=== PATIENT | male | born 1950 | race Caucasian/White ===

== ENCOUNTER 2020-04-29 03:37 | Emergency (ER) | payer MEDICARE, SELFPAY ==
[2020-04-29] VITALS (51 sets, daily range): BP systolic 117–192; BP diastolic 58–97; PULSE 57–67; RESP 8–23; O2SAT 97–100
--- NOTE | 2020-04-29 03:36 | ED.CHESTPAIN ---
HPI - Chest Pain <Carrie Hanna MD - Last Filed: 04/29/20 18:05> General Chief Complaint: Chest Pain Stated Complaint: Chest pain Time Seen by Provider: 04/29/20 03:40 History of Present Illness HPI narrative: Otherwise healthy 70-year-old gentleman currently on no medications presents after developing chest pain starting at 6:00 p.m. last night. He was sitting watching TV and noticed pressure tightness across his chest radiating up into the left shoulder without associated diaphoresis or dyspnea. Has progressively gotten worse over the course of the evening and by 3:00 a.m. was uncomfortable enough that he called medics for further evaluation. He notes that he went for a beach walk earlier in the day did not have chest pain diaphoresis or dyspnea. He denies any recent illness and specifically no fever, cough, abdominal pain, vomiting, diarrhea, lower extremity edema. Related Data Home Medications Medication Instructions Recorded Confirmed No Known Home Medications 04/29/20 04/29/20 Allergies Allergy/AdvReac Type Severity Reaction Status Date / Time No Known Drug Allergies Allergy Verified 04/29/20 03:51 Review of Systems <Carrie Hanna MD - Last Filed: 04/29/20 18:05> Review of Systems Narrative: Remainder of review of systems including constitutional, ENT, cardiovascular, respiratory, GI, , musculoskeletal, skin, neurologic and psychiatric systems reviewed and are unremarkable except as noted in HPI. Patient History <Carrie Hanna MD - Last Filed: 04/29/20 18:05> Medical History Healthy adult (Acute) Social History Smoking Status: Never smoker Exam <Carrie Hanna MD - Last Filed: 04/29/20 18:05> Narrative Exam Narrative: General: Healthy appearing, in no acute distress. Able to give a complete and coherent history. Well-nourished well-developed HEENT: Moist mucous membranes, normal sclera with reactive pupils, Neck: No JVD, supple, no cervical adenopathy Respiratory: Lungs are clear to auscultation, no wheezing no rales no rhonchi. Full and symmetrical air movement Cardiac: Regular rate and rhythm no murmurs no bruits Abdomen: Soft nontender good bowel tones, no flank pain Skin: Warm and dry, no rashes Neurologic: Grossly neurologically intact with no obvious asymmetries or abnormalities Extremities: No trauma, well perfused Psych: Cooperative, appropriate insight and affect Initial Vital Signs Initial Vital Signs: Vital Signs Pulse Rate 66 04/29/20 03:35 Respiratory Rate 18 04/29/20 03:35 Blood Pressure 175/75 H 04/29/20 03:35 Pulse Oximetry 98 04/29/20 03:35 <Weston Edge DO - Last Filed: 04/29/20 11:59> Initial Vital Signs Initial Vital Signs: Vital Signs Pulse Rate 66 04/29/20 03:35 Respiratory Rate 18 04/29/20 03:35 Blood Pressure 175/75 H 04/29/20 03:35 Pulse Oximetry 98 04/29/20 03:35 Course <Carrie Hanna MD - Last Filed: 04/29/20 18:05> Orders Ordered: Discontinued Medications Acetaminophen (Tylenol) 650 mg PO NOW ONE Stop: 04/29/20 08:26 Last Admin: 04/29/20 08:33 Dose: 650 mg Documented by: NATALIE Heparin Sodium (Porcine) (Heparin) 5,200 unit 80 unit/kg (5200 unit) IV NOW ONE Stop: 04/29/20 07:05 Last Admin: 04/29/20 07:08 Dose: 5,200 unit Documented by: DANI Sodium Chloride (Normal Saline 0.9%) 1,000 mls @ 150 mls/hr IV CONT [facility] Last Infusion: 04/29/20 07:20 Dose: 0 mls/hr Documented by: Admin: 04/29/20 03:58 Dose: 150 mls/hr Documented by: DANI Heparin Sodium/Dextrose (Heparin Drip) 25,000 unit in 500 mls @ 20 mls/hr IV CONT [facility]; Protocol Last Titration: 04/29/20 09:09 Dose: 1,000 units/hr, 20 mls/hr Documented by: Admin: 04/29/20 07:08 Dose: 1,000 units/hr, 20 mls/hr Documented by: DANI Morphine Sulfate (Morphine) 4 mg IV NOW ONE Stop: 04/29/20 08:26 Last Admin: 04/29/20 08:32 Dose: 4 mg Documented by: NATALIE Nitroglycerin (Nitrostat) 0.4 mg SL [id number] PRN PRN Reason: Chest Pain Last Admin: 04/29/20 06:52 Dose: 0.4 mg Documented by: Admin: 04/29/20 03:58 Dose: 0.4 mg Documented by: DANI Nitroglycerin (Nitro-Bid) 1 inch TOP NOW ONE Stop: 04/29/20 06:50 Last Admin: 04/29/20 06:54 Dose: Not Given Documented by: DANI Nitroglycerin (Nitro-Bid) 0.5 inch TOP NOW ONE Stop: 04/29/20 06:51 Last Admin: 04/29/20 06:55 Dose: 0.5 inch Documented by: JAC Nitroglycerin (Nitrostat) 0.4 mg SL NOW ONE Stop: 04/29/20 07:05 Last Admin: 04/29/20 07:07 Dose: 0.4 mg Documented by: DANI Vital Signs Vital signs: Vital Signs - 8 hr 04/29/20 04:10 04/29/20 04:15 04/29/20 04:20 Pulse Rate 66 64 63 Respiratory Rate 13 13 16 Blood Pressure 117/59 L 121/58 L 129/63 Pulse Oximetry 97 97 98 04/29/20 04:25 04/29/20 04:30 04/29/20 04:35 Pulse Rate 62 61 62 Respiratory Rate 13 12 13 Blood Pressure 137/68 119/65 123/70 Pulse Oximetry 97 97 97 04/29/20 04:40 04/29/20 04:46 04/29/20 04:50 Pulse Rate 62 65 61 Respiratory Rate 13 19 20 Blood Pressure 127/71 139/95 H 148/95 H Pulse Oximetry 98 98 98 04/29/20 04:55 04/29/20 05:00 04/29/20 05:05 Pulse Rate 61 60 63 Respiratory Rate 14 10 L 13 Blood Pressure 139/66 138/67 133/60 Pulse Oximetry 98 98 98 04/29/20 05:10 04/29/20 05:15 04/29/20 05:20 Pulse Rate 62 64 62 Respiratory Rate 21 13 11 L Blood Pressure 130/63 135/66 132/65 Pulse Oximetry 98 98 98 04/29/20 05:25 04/29/20 05:30 04/29/20 05:35 Pulse Rate 62 60 60 Respiratory Rate 15 12 8 L Blood Pressure 136/67 134/68 135/68 Pulse Oximetry 99 99 99 04/29/20 05:40 04/29/20 05:45 04/29/20 05:50 Pulse Rate 60 60 60 Respiratory Rate 10 L 15 16 Blood Pressure 139/70 141/67 H 139/74 Pulse Oximetry 99 100 99 04/29/20 05:55 04/29/20 06:00 04/29/20 06:05 Pulse Rate 59 L 59 L 57 L Respiratory Rate 14 11 L 12 Blood Pressure 139/76 135/74 140/76 Pulse Oximetry 100 99 100 04/29/20 06:10 04/29/20 06:17 04/29/20 06:20 Pulse Rate 59 L 60 58 L Respiratory Rate 11 L 15 12 Blood Pressure 151/74 H 168/71 H 149/69 H Pulse Oximetry 100 04/29/20 06:30 04/29/20 06:41 04/29/20 06:59 Pulse Rate 63 63 67 Respiratory Rate 13 19 14 Blood Pressure 171/77 H 145/74 H Pulse Oximetry 04/29/20 07:00 04/29/20 07:07 04/29/20 07:10 Pulse Rate 67 67 67 Respiratory Rate 15 12 Blood Pressure 147/72 H 147/72 H 157/74 H Pulse Oximetry 04/29/20 07:15 04/29/20 07:30 04/29/20 08:00 Pulse Rate 66 61 63 Respiratory Rate 16 13 14 Blood Pressure 155/72 H Pulse Oximetry 100 99 04/29/20 08:07 04/29/20 08:10 04/29/20 08:15 Pulse Rate 63 63 64 Respiratory Rate 15 15 19 Blood Pressure 165/80 H 161/83 H 171/90 H Pulse Oximetry 99 99 98 04/29/20 08:20 04/29/20 08:25 04/29/20 08:30 Pulse Rate 66 65 64 Respiratory Rate 20 23 19 Blood Pressure 192/97 H 171/86 H 172/88 H Pulse Oximetry 100 99 100 04/29/20 08:36 04/29/20 08:40 04/29/20 08:45 Pulse Rate 58 L 58 L 61 Respiratory Rate 10 L 13 13 Blood Pressure 178/85 H 175/83 H 169/77 H Pulse Oximetry 100 100 100 04/29/20 08:50 04/29/20 08:55 04/29/20 09:00 Pulse Rate 57 L 60 62 Respiratory Rate 11 L 16 17 Blood Pressure 148/76 H 144/72 H 132/67 Pulse Oximetry 99 98 98 04/29/20 09:05 Pulse Rate 60 Respiratory Rate 11 L Blood Pressure 140/71 Pulse Oximetry 99 <Weston Edge DO - Last Filed: 04/29/20 11:59> Course Course Narrative: received in signout from Dr. Hanna. I've performed an independent history and physical exam and have no significant additions. 0830 - pain returning. Now 02/27 with radiation to left posterior shoulder and heaviness in chest. Morphine 4mg IV given along with Acetaminophen 650mg PO and NG drip ordered. Repeat EKG now shows hyperacute T waves in anterior leads. Cardiology paged, [facility] Insemination Worker notified. Metop held given HR 57. Dr. Westbrook will see patient on arrival 0900 - Hospitalist paged. Orders Ordered: Discontinued Medications Acetaminophen (Tylenol) 650 mg PO NOW ONE Stop: 04/29/20 08:26 Last Admin: 04/29/20 08:33 Dose: 650 mg Documented by: NATALIE Heparin Sodium (Porcine) (Heparin) 5,200 unit 80 unit/kg (5200 unit) IV NOW ONE Stop: 04/29/20 07:05 Last Admin: 04/29/20 07:08 Dose: 5,200 unit Documented by: DANI Sodium Chloride (Normal Saline 0.9%) 1,000 mls @ 150 mls/hr IV CONT [facility] Last Infusion: 04/29/20 07:20 Dose: 0 mls/hr Documented by: Admin: 04/29/20 03:58 Dose: 150 mls/hr Documented by: DANI Heparin Sodium/Dextrose (Heparin Drip) 25,000 unit in 500 mls @ 20 mls/hr IV CONT [facility]; Protocol Last Titration: 04/29/20 09:09 Dose: 1,000 units/hr, 20 mls/hr Documented by: Admin: 04/29/20 07:08 Dose: 1,000 units/hr, 20 mls/hr Documented by: DANI Morphine Sulfate (Morphine) 4 mg IV NOW ONE Stop: 04/29/20 08:26 Last Admin: 04/29/20 08:32 Dose: 4 mg Documented by: NATALIE Nitroglycerin (Nitrostat) 0.4 mg SL [id number] PRN PRN Reason: Chest Pain Last Admin: 04/29/20 06:52 Dose: 0.4 mg Documented by: Admin: 04/29/20 03:58 Dose: 0.4 mg Documented by: DANI Nitroglycerin (Nitro-Bid) 1 inch TOP NOW ONE Stop: 04/29/20 06:50 Last Admin: 04/29/20 06:54 Dose: Not Given Documented by: DANI Nitroglycerin (Nitro-Bid) 0.5 inch TOP NOW ONE Stop: 04/29/20 06:51 Last Admin: 04/29/20 06:55 Dose: 0.5 inch Documented by: JAC Nitroglycerin (Nitrostat) 0.4 mg SL NOW ONE Stop: 04/29/20 07:05 Last Admin: 04/29/20 07:07 Dose: 0.4 mg Documented by: DANI Vital Signs Vital signs: Vital Signs - 8 hr 04/29/20 04:10 04/29/20 04:15 04/29/20 04:20 Pulse Rate 66 64 63 Respiratory Rate 13 13 16 Blood Pressure 117/59 L 121/58 L 129/63 Pulse Oximetry 97 97 98 04/29/20 04:25 04/29/20 04:30 04/29/20 04:35 Pulse Rate 62 61 62 Respiratory Rate 13 12 13 Blood Pressure 137/68 119/65 123/70 Pulse Oximetry 97 97 97 04/29/20 04:40 04/29/20 04:46 04/29/20 04:50 Pulse Rate 62 65 61 Respiratory Rate 13 19 20 Blood Pressure 127/71 139/95 H 148/95 H Pulse Oximetry 98 98 98 04/29/20 04:55 04/29/20 05:00 04/29/20 05:05 Pulse Rate 61 60 63 Respiratory Rate 14 10 L 13 Blood Pressure 139/66 138/67 133/60 Pulse Oximetry 98 98 98 04/29/20 05:10 04/29/20 05:15 04/29/20 05:20 Pulse Rate 62 64 62 Respiratory Rate 21 13 11 L Blood Pressure 130/63 135/66 132/65 Pulse Oximetry 98 98 98 04/29/20 05:25 04/29/20 05:30 04/29/20 05:35 Pulse Rate 62 60 60 Respiratory Rate 15 12 8 L Blood Pressure 136/67 134/68 135/68 Pulse Oximetry 99 99 99 04/29/20 05:40 04/29/20 05:45 04/29/20 05:50 Pulse Rate 60 60 60 Respiratory Rate 10 L 15 16 Blood Pressure 139/70 141/67 H 139/74 Pulse Oximetry 99 100 99 04/29/20 05:55 04/29/20 06:00 04/29/20 06:05 Pulse Rate 59 L 59 L 57 L Respiratory Rate 14 11 L 12 Blood Pressure 139/76 135/74 140/76 Pulse Oximetry 100 99 100 04/29/20 06:10 04/29/20 06:17 04/29/20 06:20 Pulse Rate 59 L 60 58 L Respiratory Rate 11 L 15 12 Blood Pressure 151/74 H 168/71 H 149/69 H Pulse Oximetry 100 04/29/20 06:30 04/29/20 06:41 04/29/20 06:59 Pulse Rate 63 63 67 Respiratory Rate 13 19 14 Blood Pressure 171/77 H 145/74 H Pulse Oximetry 04/29/20 07:00 04/29/20 07:07 04/29/20 07:10 Pulse Rate 67 67 67 Respiratory Rate 15 12 Blood Pressure 147/72 H 147/72 H 157/74 H Pulse Oximetry 04/29/20 07:15 04/29/20 07:30 04/29/20 08:00 Pulse Rate 66 61 63 Respiratory Rate 16 13 14 Blood Pressure 155/72 H Pulse Oximetry 100 99 04/29/20 08:07 04/29/20 08:10 04/29/20 08:15 Pulse Rate 63 63 64 Respiratory Rate 15 15 19 Blood Pressure 165/80 H 161/83 H 171/90 H Pulse Oximetry 99 99 98 04/29/20 08:20 04/29/20 08:25 04/29/20 08:30 Pulse Rate 66 65 64 Respiratory Rate 20 23 19 Blood Pressure 192/97 H 171/86 H 172/88 H Pulse Oximetry 100 99 100 04/29/20 08:36 04/29/20 08:40 04/29/20 08:45 Pulse Rate 58 L 58 L 61 Respiratory Rate 10 L 13 13 Blood Pressure 178/85 H 175/83 H 169/77 H Pulse Oximetry 100 100 100 04/29/20 08:50 04/29/20 08:55 04/29/20 09:00 Pulse Rate 57 L 60 62 Respiratory Rate 11 L 16 17 Blood Pressure 148/76 H 144/72 H 132/67 Pulse Oximetry 99 98 98 04/29/20 09:05 Pulse Rate 60 Respiratory Rate 11 L Blood Pressure 140/71 Pulse Oximetry 99 MDM - Chest Pain <Carrie Hanna MD - Last Filed: 04/29/20 18:05> Medical Records Data Attestation: I reviewed the patient's medical records. Lab Data Attestation: I reviewed the patient's lab results. Result diagrams: 04/29/20 03:45 04/29/20 03:45 Labs: Lab Results 04/29/20 04/29/20 04/29/20 Range/Units 03:45 03:45 05:50 WBC 7.2 (4.5-11.0) X10^3/uL RBC 4.60 (4.5-5.9) X10^6/uL Hgb 14.3 (13.5-17.5) g/dL Hct 42.7 (41-53) % MCV 92.8 (80-100) fL MCH 31.0 (26-34) PG MCHC 33.4 (30-36) % RDW 13.0 (11.6-14.8) % Plt Count 187 (150-400) X10^3/uL Neut % (Auto) 72.6 (50-75) % Lymph % (Auto) 14.6 L (25-40) % Irion % (Auto) 8.9 (3-14) % Eos % (Auto) 3.3 (2-4) % Baso % (Auto) 0.6 (0-2) % Neut # (Auto) 5200 (0825-4045) /uL Lymph # (Auto) 1100 (7153-2722) /uL Irion # (Auto) 600 (0-900) /uL Eos # (Auto) 200 (0-450) /uL Baso # (Auto) 0 (0-100) /uL Sodium 140 (137-145) mmol/L Potassium 4.5 (3.4-5.1) mmol/L Chloride 107 (98-107) mmol/L Carbon Dioxide 26 (22-32) mmol/L BUN 25 H (9-20) mg/dL Creatinine 1.02 (0.66-1.25) mg/dL Estimated GFR > 60.0 (>60) mL/min BUN/Creatinine Ratio 24.5 H (6-22) Glucose 102 (80-110) mg/dL Calcium 9.0 (8.4-10.2) mg/dL Total Bilirubin 0.5 (0.2-1.3) mg/dL AST 28 (17-59) IU/L ALT 26 (<50) IU/L Alkaline Phosphatase 54 (38-126) U/L Total Creatine Kinase 54 L (55-170) U/L CK-MB (CK-2) TNP CK-MB (CK-2) Rel Index TNP Troponin I < 0.012 < 0.012 (0.01-0.034) ng/mL Total Protein 7.1 (6.3-8.2) g/dL Albumin 4.3 (3.5-5.0) g/dL Globulin 2.8 (1.7-4.1) g/dL Albumin/Globulin Ratio 1.5 (1.0-2.8) Lipase 351 H (23-300) U/L COVID-19 PCR (Negative) 04/29/20 Range/Units 06:40 WBC (4.5-11.0) X10^3/uL RBC (4.5-5.9) X10^6/uL Hgb (13.5-17.5) g/dL Hct (41-53) % MCV (80-100) fL MCH (26-34) PG MCHC (30-36) % RDW (11.6-14.8) % Plt Count (150-400) X10^3/uL Neut % (Auto) (50-75) % Lymph % (Auto) (25-40) % Irion % (Auto) (3-14) % Eos % (Auto) (2-4) % Baso % (Auto) (0-2) % Neut # (Auto) (2028-9502) /uL Lymph # (Auto) (6760-8647) /uL Irion # (Auto) (0-900) /uL Eos # (Auto) (0-450) /uL Baso # (Auto) (0-100) /uL Sodium (137-145) mmol/L Potassium (3.4-5.1) mmol/L Chloride (98-107) mmol/L Carbon Dioxide (22-32) mmol/L BUN (9-20) mg/dL Creatinine (0.66-1.25) mg/dL Estimated GFR (>60) mL/min BUN/Creatinine Ratio (6-22) Glucose (80-110) mg/dL Calcium (8.4-10.2) mg/dL Total Bilirubin (0.2-1.3) mg/dL AST (17-59) IU/L ALT (<50) IU/L Alkaline Phosphatase (38-126) U/L Total Creatine Kinase (55-170) U/L CK-MB (CK-2) CK-MB (CK-2) Rel Index Troponin I (0.01-0.034) ng/mL Total Protein (6.3-8.2) g/dL Albumin (3.5-5.0) g/dL Globulin (1.7-4.1) g/dL Albumin/Globulin Ratio (1.0-2.8) Lipase (23-300) U/L COVID-19 PCR Negative (Negative) Imaging Data Chest x-ray: Attestation: I personally reviewed and interpreted this imaging study as follows: My Impression: Completely normal chest x-ray. No pneumothorax, no infiltrates no masses. ECG Data Interpretation: 1: Medics from the field at 2:57 a.m. Sinus rhythm at a rate of [address] elevation in lead V3, upsloping less than [address] depression in AVF and II EKG on arrival in the ER, 3:45am (after single nitro, aspirin, pain pressure sensation significantly decreased) Sinus rhythm at a rate of [address] depression in II and AVF has resolved Less than [address] elevation in V3 4:00 Rate of 71, sinus rhythm Normal intervals, normal axis No ST-T wave changes, no STEMI 6:00 Sinus rhythm at a rate of 56 Normal axis, normal intervals No acute ischemic changes MDM Narrative Medical decision making narrative: 70-year-old gentleman no significant history at all much less of cardiac issues. Chest pain starting approximately 6:00 p.m. last night, progressively worsening over the ensuing 9 hours. Hemodynamically stable, no dyspnea no diaphoresis. Subtle of all the EKG changes verses differences in techniques and lead placement from medic EKGs and initial ER EKG. Lab work pending. He did seem to respond nicely to initial nitro. Second nitro currently being administered. 2nd EKG does not as show evolving changes. Second nitro has him to completely pain/pressure free. Remains hemodynamically stable. 625 2nd troponin and repeat EKG remain unremarkable. Patient remains pain free. His history is strongly is consistent with cardiac etiology and a heart score of 5 putting him at high risk for MACE. Care is reviewed with Dr Nicholas, on-call Cardiology. He agrees that echocardiogram and stress testing is going to be warranted. Because stress testing cannot be accomplished at [facility] will see if beds are available at [facility] to facilitate the rest of his cardiac workup. 630 supervisor concrete stone finishing indicates bed is available, Dr Herbert accepts admit. Results of Covid test required prior to bed placement and transport. All is reviewed with patient. Questions answered. 650 patient is noticing pain returning in the left side of his neck. Sublingual nitro given half an inch of nitropaste placed. EKG is repeated. 700 repeat EKG is reassuring. Pain now occurring at rest however continues. Slightly lessened with a single nitro. Second nitro will be given and heparin will be started. <Weston Edge, DO - Last Filed: 04/29/20 11:59> Lab Data Labs: Lab Results 04/29/20 04/29/20 04/29/20 Range/Units 03:45 03:45 05:50 WBC 7.2 (4.5-11.0) X10^3/uL RBC 4.60 (4.5-5.9) X10^6/uL Hgb 14.3 (13.5-17.5) g/dL Hct 42.7 (41-53) % MCV 92.8 (80-100) fL MCH 31.0 (26-34) PG MCHC 33.4 (30-36) % RDW 13.0 (11.6-14.8) % Plt Count 187 (150-400) X10^3/uL Neut % (Auto) 72.6 (50-75) % Lymph % (Auto) 14.6 L (25-40) % Irion % (Auto) 8.9 (3-14) % Eos % (Auto) 3.3 (2-4) % Baso % (Auto) 0.6 (0-2) % Neut # (Auto) 5200 (5664-4457) /uL Lymph # (Auto) 1100 (6452-8182) /uL Irion # (Auto) 600 (0-900) /uL Eos # (Auto) 200 (0-450) /uL Baso # (Auto) 0 (0-100) /uL Sodium 140 (137-145) mmol/L Potassium 4.5 (3.4-5.1) mmol/L Chloride 107 (98-107) mmol/L Carbon Dioxide 26 (22-32) mmol/L BUN 25 H (9-20) mg/dL Creatinine 1.02 (0.66-1.25) mg/dL Estimated GFR > 60.0 (>60) mL/min BUN/Creatinine Ratio 24.5 H (6-22) Glucose 102 (80-110) mg/dL Calcium 9.0 (8.4-10.2) mg/dL Total Bilirubin 0.5 (0.2-1.3) mg/dL AST 28 (17-59) IU/L ALT 26 (<50) IU/L Alkaline Phosphatase 54 (38-126) U/L Total Creatine Kinase 54 L (55-170) U/L CK-MB (CK-2) TNP CK-MB (CK-2) Rel Index TNP Troponin I < 0.012 < 0.012 (0.01-0.034) ng/mL Total Protein 7.1 (6.3-8.2) g/dL Albumin 4.3 (3.5-5.0) g/dL Globulin 2.8 (1.7-4.1) g/dL Albumin/Globulin Ratio 1.5 (1.0-2.8) Lipase 351 H (23-300) U/L COVID-19 PCR (Negative) 04/29/20 Range/Units 06:40 WBC (4.5-11.0) X10^3/uL RBC (4.5-5.9) X10^6/uL Hgb (13.5-17.5) g/dL Hct (41-53) % MCV (80-100) fL MCH (26-34) PG MCHC (30-36) % RDW (11.6-14.8) % Plt Count (150-400) X10^3/uL Neut % (Auto) (50-75) % Lymph % (Auto) (25-40) % Irion % (Auto) (3-14) % Eos % (Auto) (2-4) % Baso % (Auto) (0-2) % Neut # (Auto) (8700-8438) /uL Lymph # (Auto) (8723-8527) /uL Irion # (Auto) (0-900) /uL Eos # (Auto) (0-450) /uL Baso # (Auto) (0-100) /uL Sodium (137-145) mmol/L Potassium (3.4-5.1) mmol/L Chloride (98-107) mmol/L Carbon Dioxide (22-32) mmol/L BUN (9-20) mg/dL Creatinine (0.66-1.25) mg/dL Estimated GFR (>60) mL/min BUN/Creatinine Ratio (6-22) Glucose (80-110) mg/dL Calcium (8.4-10.2) mg/dL Total Bilirubin (0.2-1.3) mg/dL AST (17-59) IU/L ALT (<50) IU/L Alkaline Phosphatase (38-126) U/L Total Creatine Kinase (55-170) U/L CK-MB (CK-2) CK-MB (CK-2) Rel Index Troponin I (0.01-0.034) ng/mL Total Protein (6.3-8.2) g/dL Albumin (3.5-5.0) g/dL Globulin (1.7-4.1) g/dL Albumin/Globulin Ratio (1.0-2.8) Lipase (23-300) U/L COVID-19 PCR Negative (Negative) Discharge Plan Departure Patient Disposition: [facility] Clinical Impression: Acute coronary syndrome Discharge Date/Time: 04/29/20 09:35 Prescriptions: No Action No Known Home Medications RF: 0
--- NOTE | 2020-04-29 03:50 | DI.RAD.S_ITS ---
PROCEDURE: XR CHEST 1V INDICATIONS: chest pain TECHNIQUE: One view of the chest was acquired. COMPARISON: None. FINDINGS: Surgical changes and devices: None. Lungs and pleura: Lungs are clear. No pleural effusions or pneumothorax. Mediastinum: Mediastinal contours appear normal. Heart size is normal. Bones and chest wall: No suspicious bony lesions. Overlying soft tissues appear unremarkable. IMPRESSION: 1. No acute cardiopulmonary disease. Dictated by: Ankit Terry M.D. on 04/29/2020 at 7:18 Approved by: Ankit Terry M.D. on 04/29/2020 at 7:18
[2020-04-29 03:58] LABS: Add Manual Diff / Slide Review NO; Basophils Absolute Auto 0 /uL (0-100); Basophils Percent Auto 0.6 % (0-2); Eosinophils Absolute Auto 200 /uL (0-450); Eosinophils Percent Auto 3.3 % (2-4); Hematocrit 42.7 % (41-53); Hemoglobin 14.3 g/dL (13.5-17.5); Lymphocytes Absolute Auto 1100 /uL (1100-4500); Lymphocytes Percent Auto 14.6 % (25-40); Mean Corpuscular HGB Conc 33.4 % (30-36); Mean Corpuscular Volume 92.8 fL (80-100); Monocytes Absolute Auto 600 /uL (0-900); Monocytes Percent Auto 8.9 % (3-14); Neutrophils Absolute Auto 5200 /uL (1500-7000); Neutrophils Percent Auto 72.6 % (50-75); Platelet Count 187 X10^3/uL (150-400); White Blood Cell Count 7.2 X10^3/uL (4.5-11.0)
[2020-04-29] MEDS: NITROGLYCERIN 0.4 MG SL TAB SL ×3 (03:58→07:07)
[2020-04-29] MEDS: SODIUM CHLORIDE 0.9% 1,000 ML 150 ML IV (03:58)
[2020-04-29 04:04] LABS: Alanine Aminotransferase 26 IU/L (<50); Albumin 4.3 g/dL (3.5-5.0); Albumin Globulin Ratio 1.5 (1.0-2.8); Alkaline Phosphatase 54 U/L (38-126); Aspartate Aminotransferase 28 IU/L (17-59); BUN Creatinine Ratio 24.5 (6-22); Bilirubin Total 0.5 mg/dL (0.2-1.3); Blood Urea Nitrogen 25 mg/dL (9-20); Carbon Dioxide 26 mmol/L (22-32); Chloride 107 mmol/L (98-107); Creatine Kinase 54 U/L (55-170); Estimated Glomerular Filt Rate > 60.0 mL/min (>60); Globulin 2.8 g/dL (1.7-4.1); Glucose 102 mg/dL (80-110); Lipase 351 U/L (23-300); Potassium 4.5 mmol/L (3.4-5.1); Sodium 140 mmol/L (137-145); Total Protein 7.1 g/dL (6.3-8.2)
[2020-04-29 04:08] LABS: HEMOLYSIS 55 (0-50)
[2020-04-29 04:15] LABS: Troponin I < 0.012 ng/mL (0.01-0.034)
[2020-04-29 06:18] LABS: Troponin I < 0.012 ng/mL (0.01-0.034)
[2020-04-29] MEDS: NITROGLYCERIN OINT 1 INCH/GM OINT...G. 0.5 INCH TOP (06:55)
[2020-04-29 07:03] LABS: COVID19 -Nasal RAPID Negative (Negative)
[2020-04-29] MEDS: HEPARIN DRIP 25,000 UNIT/500 ML IV.SOLN 20 UNIT IV (07:08)
[2020-04-29] MEDS: HEPARIN 5,000 UNIT/ML VIAL 5200 UNIT IV (07:08)
--- NOTE | 2020-04-29 07:13 | PC.NURSE ---
Pt called and stated he started having pain in left shoulder. Provider aware. new orders received. Received 2 more of nitro including nitro paste. Heparin started. reports pain is increasing and nitro did not help pain.
--- NOTE | 2020-04-29 07:26 | PC.NURSE ---
safe handoff recieved from Kika VILLANUEVA. Heparin infusing at 20/hr. Patient up to restroom and returned to room with little assistance. Placed back on monitor. Denies needs at this time.
[2020-04-29] MEDS: MORPHINE 4 MG/ML INJ IV (08:32)
[2020-04-29] MEDS: ACETAMINOPHEN 325 MG TABLET 650 MG PO (08:33)
--- NOTE | 2020-04-29 08:40 | PC.NURSE ---
patient reports increasing chest pain and headache from nitro drip. Provider aware, orders received.
[2020-04-29] MEDS: NITROGLYCERIN 50 MG/250 ML INFUS..BTL IV (08:55)
--- NOTE | 2020-04-29 09:11 | PC.NURSE ---
nitro infusion continued in transport 1.5mcg/hr L forearm.
== END 2020-04-29 09:35 | disposition short-term general hospital (02) ==
PROVIDERS: Emergency Medicine; Emergency Provider Emergency Medicine
DX: I24.9 Acute ischemic heart disease, unspecified (principal)
CPT/HCPCS: 36415; 71045; 80053; 82550; 83690; 84484; 85025; 87635; 93005; 96361; 96365; 96366; 96375; 99284; J1644; J2270